=== PATIENT | male | born 1985 ===

== ENCOUNTER 2019-01-13 04:56 | Inpatient (IN) | payer OTHER ==
[~2019-01-13] VITALS: Ht 180.3 cm; Wt 109.5 kg
--- NOTE | 2019-01-13 05:07 | ERD ---
ER Documentation Chief Complaint Chief Complaint Overdose HPI 33-year-old male brought in by ambulance after suicide attempt via overdose. Patient states that he took 15 of his gabapentin 600 mg pills in addition to using methamphetamines and heroin. He states this was an attempt to hurt himself. He states that he was recently in rehab for 70 days and was off of drugs. He got out a few days ago. He met someone today who was told him several drugs. He initially injected methamphetamines, which made him start hallucinating and being very paranoid. He then injected heroin and took his gabapentin pills to help himself feel better. He thinks he was trying to hurt himself but he cannot really answer that question at this time. He states he feels very anxious. No other physical complaints. ROS All systems reviewed and are negative except as per history of present illness. Allergies Allergies: Coded Allergies: No Known Allergy (Unverified , 01/13/19) PMhx/Soc Medical and Surgical Hx: pt denies Surgical Hx Hx Psychiatric Problems: Yes (Depression, PTSD, drug use disorder) Hx Miscellaneous Medical Probl: Yes (Hep C, treated for syphilis in the past) Hx Alcohol Use: No Hx Substance Use: Yes Hx Tobacco Use: Yes FmHx Family History: No diabetes Physical Exam Vitals Vital Signs Date Temp Pulse Resp B/P (MAP) Pulse Ox O2 O2 Flow FiO2 Time Delivery Rate 01/13/19 98.7 84 23 113/87 97 05:05 (96) Physical Exam Const: disheveled, nontoxic Head: Atraumatic Eyes: Normal Conjunctiva. Right pupil dilated and not reactive to light, secondary to old trauma per patient. Left pupil midsize, reactive to light. Horizontal bilateral nystagmus noted. ENT: Normal External Ears, Nose and Mouth. Neck: Full range of motion. No meningismus. Resp: Clear to auscultation bilaterally Cardio: Tachycardic with regular rhythm, no murmurs Abd: Soft, non tender, non distended. Normal bowel sounds Skin: No petechiae or rashes Back: No midline or flank tenderness Ext: No cyanosis, or edema Neur: Awake and alert, normal speech. Moving all extremities. Psych: Very anxious, hyperactive, rapid speech. Paranoid, hallucinating. Result Diagram: 01/13/19 0503 01/13/19 0503 Results 24 hrs Laboratory Tests Test 01/13/19 05:03 01/13/19 05:33 White Blood Count 12.3 10^3/ul Red Blood Count 4.97 10^6/ul Hemoglobin 15.2 g/dl Hematocrit 43.9 % Mean Corpuscular Volume 88.3 fl Mean Corpuscular Hemoglobin 30.6 pg Mean Corpuscular Hemoglobin Concent 34.6 g/dl Red Cell Distribution Width 12.9 % Platelet Count 216 10^3/UL Mean Platelet Volume 9.7 fl Immature Granulocytes % 0.200 % Neutrophils % 55.8 % Lymphocytes % 28.5 % Monocytes % 13.9 % Eosinophils % 1.1 % Basophils % 0.5 % Nucleated Red Blood Cells % 0.0 /100WBC Immature Granulocytes # 0.030 10^3/ul Neutrophils # 6.9 10^3/ul Lymphocytes # 3.5 10^3/ul Monocytes # 1.7 10^3/ul Eosinophils # 0.1 10^3/ul Basophils # 0.1 10^3/ul Nucleated Red Blood Cells # 0.0 10^3/ul Urine Color CIELO Urine Clarity CLEAR Urine pH 6.0 Urine Specific [place] 1.030 Urine Ketones NEGATIVE mg/dL Urine Nitrite NEGATIVE mg/dL Urine Bilirubin NEGATIVE mg/dL Urine Urobilinogen 2+ mg/dL Urine Leukocyte Esterase NEGATIVE Shabbir/ul Urine Microscopic RBC 1 /HPF Urine Microscopic WBC 1 /HPF Urine Bacteria FEW /HPF Urine Hemoglobin NEGATIVE mg/dL Urine Glucose NEGATIVE mg/dL Urine Total Protein 1+ mg/dl Sodium Level 138 mmol/L Potassium Level 3.6 mmol/L Chloride Level 101 mmol/L Carbon Dioxide Level 28 mmol/L Anion Gap 9 Blood Urea Nitrogen 25 mg/dl Creatinine 1.13 mg/dl Est Glomerular Filtrat Rate mL/min > 60 mL/min Glucose Level 107 mg/dl Calcium Level 8.2 mg/dl Total Bilirubin 1.2 mg/dl Direct Bilirubin 0.00 mg/dl Indirect Bilirubin 1.2 mg/dl Aspartate Amino Transf (AST/SGOT) 94 IU/L Alanine Aminotransferase (ALT/SGPT) 67 IU/L Alkaline Phosphatase 94 IU/L Total Protein 7.1 g/dl Albumin 3.8 g/dl Globulin 3.30 g/dl Albumin/Globulin Ratio 1.15 Salicylates Level < 1.0 mg/dl Acetaminophen Level < 10.0 ug/ml Ethyl Alcohol Level < 10.0 mg/dl POC Venous Lactate 0.6 mmol/L Current Medications Medications Dose Sig/Stacy Start Time Status Last (Trade) Ordered Route PRN Stop Time Admin Dose Reason Admin Sodium 1,000 ml @ Q1H STAT 01/13/19 01/13/19 Chloride 1,000 mls/hr IV 05:23 05:39 01/13/19 06:22 Lorazepam 2 mg ONCE STAT 01/13/19 DC 01/13/19 (Ativan) IV 05:23 05:39 01/13/19 05:25 Procedures/MDM EMERGENT LABS AND DIAGNOSTIC STUDIES: Lab Results above were reviewed and interpreted by me. CBC: no anemia or evidence of infection CMP: No evidence of clinically significant electrolyte abnormality, acidosis, renal failure, hypoglycemia, liver disease, or biliary obstruction CK: Pending Troponin pending Lactate within normal limits without evidence of sepsis or tissue hypoperfusion UDS: Pending EtOH, salicylate, and acetaminophen levels within normal limits 12-lead EKG was interpreted by Giselle Bingham MD: Normal Sinus Rhythm with ventricular rate of [] beats per minute Normal axis Normal intervals No acute ST or T wave changes suggestive of acute ischemia or STEMI. Initial Nursing notes reviewed. Previous Medical Records requested via the Electronic Health Record. EMERGENCY DEPARTMENT COURSE / MEDICAL DECISION MAKING: Patient is presenting after drug overdose with paranoia and anxiety. He states that this was an attempt to hurt himself. Vitals were notable for tachycardia. Patient was treated with 2 mg IV Ativan. Poison control was contacted and they recommended multiple studies which were ordered. They recommended observation in the ED for at least 6 hours prior to discharge. Patient is agreeable with treatment plan. He has been placed on site monitor. There are no signs of tissue hypoperfusion at this time. He is awake and alert with no focal neurologic deficits. Patient will be signed out to the oncoming ED physician pending medical clearance. Once patient is medically cleared, he may be evaluated by psychiatry if deemed appropriate. Departure Diagnosis: Primary Impression: Suicide threat or attempt Additional Impressions: Overdose of drug Encounter type: initial encounter Injury intent: intentional self-harm Qualified Codes: T50.902A - Poisoning by unspecified drugs, medicaments and biological substances, intentional self-harm, initial encounter Polysubstance abuse Condition: Serious SUSANNAH BINGHAM MD Jan 13, 2019 05:07
[2019-01-13] MEDS ORDERED: LORAZEPAM 2 MG INJ IV STA (05:23)
[2019-01-13] MEDS ORDERED: SOD CHLORIDE 0.9% 1,000 ML IV STA ×2 (05:23→06:15)
--- NOTE | 2019-01-13 07:00 | PSY ---
Date/Time of Note Date/Time of Note DATE: 01/13/19 TIME: 06:56 Psychiatric Subjective Eval Consent Pt consented to telemedicine: Yes Subjective Evaluation Patient location: emergency Chief Complaint: [id number],took 15 gabapentin pills,used crystal meth & heroine,L back pain Hospitalization: Suicidal Attempt(s) Medical history Problems Medical Problems: (1) Overdose of drug Status: Acute (2) Polysubstance abuse Status: Acute (3) Suicide threat or attempt Status: Acute Allergies: Coded Allergies: No Known Allergy (Unverified , 01/13/19) Social History Marital status: single DPA/Conservatorship: No Psychiatric Objective Eval Mental Status Examination: Laboratory Results Laboratory Tests Test 01/13/19 05:03 01/13/19 05:27 01/13/19 05:33 White Blood Count 12.3 10^3/ul Red Blood Count 4.97 10^6/ul Hemoglobin 15.2 g/dl Hematocrit 43.9 % Mean Corpuscular Volume 88.3 fl Mean Corpuscular Hemoglobin 30.6 pg Mean Corpuscular 34.6 g/dl Hemoglobin Concent Red Cell Distribution Width 12.9 % Platelet Count 216 10^3/UL Mean Platelet Volume 9.7 fl Immature Granulocytes % 0.200 % Neutrophils % 55.8 % Lymphocytes % 28.5 % Monocytes % 13.9 % Eosinophils % 1.1 % Basophils % 0.5 % Nucleated Red Blood Cells % 0.0 /100WBC Immature Granulocytes # 0.030 10^3/ul Neutrophils # 6.9 10^3/ul Lymphocytes # 3.5 10^3/ul Monocytes # 1.7 10^3/ul Eosinophils # 0.1 10^3/ul Basophils # 0.1 10^3/ul Nucleated Red Blood Cells # 0.0 10^3/ul Urine Color CIELO Urine Clarity CLEAR Urine pH 6.0 Urine Specific [place] 1.030 Urine Ketones NEGATIVE mg/dL Urine Nitrite NEGATIVE mg/dL Urine Bilirubin NEGATIVE mg/dL Urine Urobilinogen 2+ mg/dL Urine Leukocyte Esterase NEGATIVE Shabbir/ul Urine Microscopic RBC 1 /HPF Urine Microscopic WBC 1 /HPF Urine Bacteria FEW /HPF Urine Hemoglobin NEGATIVE mg/dL Urine Glucose NEGATIVE mg/dL Urine Total Protein 1+ mg/dl Sodium Level 138 mmol/L Potassium Level 3.6 mmol/L Chloride Level 101 mmol/L Carbon Dioxide Level 28 mmol/L Anion Gap 9 Blood Urea Nitrogen 25 mg/dl Creatinine 1.13 mg/dl Est Glomerular Filtrat > 60 mL/min Rate mL/min Glucose Level 107 mg/dl Calcium Level 8.2 mg/dl Total Bilirubin 1.2 mg/dl Direct Bilirubin 0.00 mg/dl Indirect Bilirubin 1.2 mg/dl Aspartate Amino 94 IU/L Transf (AST/SGOT) Alanine 67 IU/L Aminotransferase (ALT/SGPT) Alkaline Phosphatase 94 IU/L Total Protein 7.1 g/dl Albumin 3.8 g/dl Globulin 3.30 g/dl Albumin/Globulin Ratio 1.15 Salicylates Level < 1.0 mg/dl Urine Opiates Screen POSITIVE Acetaminophen Level < 10.0 ug/ml Urine Barbiturates NEGATIVE Urine Amphetamines Screen POSITIVE Urine Benzodiazepines Screen NEGATIVE Urine Cocaine Screen NEGATIVE Urine Cannabinoids NEGATIVE Ethyl Alcohol Level < 10.0 mg/dl Creatine Kinase 1585 IU/L Creatine Kinase Index 1.0 Creatinine Kinase MB (Mass) 15.40 ng/ml Troponin I < 0.012 ng/ml POC Venous Lactate 0.6 mmol/L Assessment and Plan Recommendation/Plan Discharge Disposition: Psychiatric inpatient Legal Status: Place involuntary hold Assessment Additional comments: IDENTIFYING INFORMATION: 33 year old Male patient who is currently located at the hospital and for whom psychiatric consultation was requested. SOURCES OF INFORMATION: The patient who appears to be somewhat reliable and the medical records; the nursing staff. CHIEF COMPLAINT: "hmmm". HISTORY OF PRESENT ILLNESS: The patient was interviewed via telemedicine in the presence of and under the supervision of nursing staff of the hospital. The consent to conducting this interview via telemedicine was obtained by the nursing staff at the hospital. Dr. Kaiser reports that the patient presented with SI, meth, opiate use and an OD of various medications. According to the emergency room physicians note, the patient presented with a suicide attempt. Is on a 5150 hold for DTS. The patient was not able to cooperate and answer questions in a comprehensible manner. PAST MEDICAL HISTORY: Unable to assess, because the patient was not able to participate in the interview. CURRENT MEDICATIONS: Unable to assess, because the patient was not able to participate in the interview.. ALLERGIES TO MEDICATIONS: no known drug allergies according to the chart. LABORATORY TESTS: CBC with WBCs 12.3, CMP with calcium 8.2, indirect bili 1.2, AST 94, CK 1585, UDS + amph, opiates, alcohol level -. SOCIAL HISTORY: Unable to assess, because the patient was not able to participate in the interview. REVIEW OF SYSTEMS: unable to assess due to the patient not being able to cooperate. MENTAL STATUS EXAMINATION: General Appearance and Behavior: somnolent, uncooperative with the interview, falls asleep during the interview, makes poor eye contact, poorly groomed, no abnormal movements noted. Speech: slow rate, regular rhythm, increased latency, normal volume, decreased amount. Flow of thought: illogical, tangential, Content of thought: positive for suicidal ideation based on the chart as well as overdose, Unable to assess further as the patient is not able to cooperate with the interview due to sedation. Mood: Unable to assess as the patient is not able to cooperate with the interview due to sedation. Affect: Unable to assess as the patient is not able to cooperate with the interview due to sedation. Attention: decreased based on the interview. Insight: Unable to assess as the patient is not able to cooperate with the interview due to sedation. Judgment: poor. Memory: Unable to assess as the patient is not able to cooperate with the interview due to sedation. Sensorium: somnolent, wakes up to voice, then falls back asleep within a few seconds. ASSESSMENT: The patient's presentation and history are consistent with the diagnosis of unspecified psychotic disorder, stimulant use disorder, opiate use disorder. The patient presents with an exacerbation of psychosis in the context of psychosocial stressors and substance use. PLAN: - Medication management: Would start haloperidol 5 mg IM PRN severe agitation q4 hours. Would start diphenhydramine 50 mg IM PRN severe agitation q4 hours. Would start lorazepam 2 mg IM PRN severe agitation q4 hours Will defer to the inpatient psychiatry team for other medication changes. - Labs: No other laboratory tests are needed at this time. - Psychotherapy: Provided supportive psychotherapy and psychoeducation. - Disposition: Would recommend involuntary admission to the inpatient psychiatric unit given the severity of the patient's psychiatric condition and the fact that the patient is an imminent danger to self and/or others so long as the patient has been cleared medically for admission to psychiatry. Inpatient psychiatric admission is at this time the least restrictive environment where the patient can receive the psychiatric care that is needed. Would place on suicide precautions. The patient fulfills criteria for being placed on an involuntary hold for being a danger to self due to a psychiatric disorder. Discussed about the above plan with Dr. Kaiser. CHARLES CORNEJO MD Jan 13, 2019 07:00
[2019-01-13] MEDS ORDERED: LORAZEPAM 1 MG TAB PO ONE (10:00)
--- NOTE | 2019-01-13 12:16 | HP ---
Date/Time of Note Date/Time of Note DATE: 01/13/19 TIME: 12:16 Assessment/Plan VTE Prophylaxis Pharmacological prophylaxis: LMWH Lines/Catheters IV [facility]ter [facility]from [facility]): Peripheral IV Assessment/Plan Hospital Course This a 33-year-old male with a past medical history of depression and substance abuse was brought in to emergency room after attempted suicide with multiple medications, was found to underlying rhabdomyolysis and will be admitted to in patient setting. 1. Rhabdomyolysis. Continue IV hydration. Monitor renal function closely. 2. Suicidal ideation with attempted suicide. Continue one-to-one observation. Status post evaluation by psychiatry who recommended involuntary psychiatric hospitalization. PRN anxiolytics. PRN Haldol for agitation. 3. Polysubstance abuse. Status post report poison control. Continue IV hydration. Continue supportive care. 4. Obesity. BMI more than 35 kg/m. Obtain a fasting lipid panel and hemoglobin A1c. Plan: The patient will be admitted to inpatient medical/surgical floor. The pa tient will be started on a regular diet. The patient will be started on DVT prophylaxis. The patient will remain a full code. Activities will be as tolerated. The rest of the patient's management will be based on the clinical course and the results of diagnostic studies. Based on the patient's clinical presentation, he most probably requires at least 1 midnight's stay for further management and evaluation of his clinical presentation. The patient was seen in collaboration with Dr. Thorpe. Result Diagram: 01/13/19 0503 01/13/19 0503 Results 24hrs Laboratory Tests Test 01/13/19 05:03 01/13/19 05:27 01/13/19 05:33 01/13/19 10:41 White Blood Count 12.3 H Red Blood Count 4.97 Hemoglobin 15.2 Hematocrit 43.9 Mean Corpuscular 88.3 Volume Mean Corpuscular 30.6 Hemoglobin Mean Corpuscular 34.6 Hemoglobin Concent Red Cell 12.9 Distribution Width Platelet Count 216 Mean Platelet Volume 9.7 Immature 0.200 Granulocytes % Neutrophils % 55.8 Lymphocytes % 28.5 Monocytes % 13.9 H Eosinophils % 1.1 Basophils % 0.5 Nucleated Red Blood 0.0 Cells % Immature 0.030 Granulocytes # Neutrophils # 6.9 Lymphocytes # 3.5 H Monocytes # 1.7 H Eosinophils # 0.1 Basophils # 0.1 Nucleated Red Blood 0.0 Cells # Urine Color CIELO Urine Clarity CLEAR Urine pH 6.0 Urine Specific 1.030 [place] Urine Ketones NEGATIVE Urine Nitrite NEGATIVE Urine Bilirubin NEGATIVE Urine Urobilinogen 2+ H Urine Leukocyte NEGATIVE Esterase Urine Microscopic 1 RBC Urine Microscopic 1 WBC Urine Bacteria FEW A Urine Hemoglobin NEGATIVE Urine Glucose NEGATIVE Urine Total Protein 1+ H Sodium Level 138 Potassium Level 3.6 Chloride Level 101 Carbon Dioxide Level 28 Anion Gap 9 Blood Urea Nitrogen 25 H Creatinine 1.13 Est Glomerular > 60 Filtrat Rate mL/min Glucose Level 107 Calcium Level 8.2 L Total Bilirubin 1.2 Direct Bilirubin 0.00 Indirect Bilirubin 1.2 H Aspartate Amino 94 H Transf (AST/SGOT) Alanine 67 Aminotransferase (AL T/SGPT) Alkaline Phosphatase 94 Total Protein 7.1 Albumin 3.8 Globulin 3.30 H Albumin/Globulin 1.15 Ratio Salicylates Level < 1.0 L Urine Opiates Screen POSITIVE Acetaminophen Level < 10.0 L Urine Barbiturates NEGATIVE Urine Amphetamines POSITIVE Screen Urine NEGATIVE Benzodiazepines Screen Urine Cocaine Screen NEGATIVE Urine Cannabinoids NEGATIVE Ethyl Alcohol Level < 10.0 H Creatine Kinase 1585 H 1297 H Creatine Kinase 1.0 Index Creatinine Kinase MB 15.40 H (Mass) Troponin I < 0.012 POC Venous Lactate 0.6 HPI/ROS Admit Date/Time Admit Date/Time Hx of Present Illness This is a 33-year-old male with past medical history of depression and substance abuse who was brought in by paramedics after the patient attempted suicide by overdosing on multiple medications. The patient took 15 gabapentin pills in addition to using methamphetamines and heroin. The patient was apparently in a rehab for 70 days and was off drugs. However, he had a relapse when he started using multiple drugs s the patient was feeling very anxious. At the time of initial interview, the patient was very somnolent and was unable to give me any significant history. In the emergency room, the patient was noticed to have underlying rhabdomyolysis. The patient's urine toxicology was positive for opioids and amphetamines. He had elevated creatinine kinase. The patient was treated with IV lorazepam and a IV hydration in the emergency room. ROS Subjective hx not possible: pt critical status PMH/Family/Social Past Medical History 1. Substance abuse. 2. Depression. Coded Allergies: No Known Allergy (Unverified , 01/13/19) Past Surgical History Past Surgical Hx: no surgical history Social History Details unknown. Smoking Status: Current every day smoker Drug Use: other (Meth and cocaine) Exam/Review of Systems Vital Signs Vitals Vital Signs Date Temp Pulse Resp B/P (MAP) Pulse Ox O2 O2 Flow FiO2 Time Delivery Rate 01/13/19 98.3 84 22 115/62 96 Room Air 10:17 (79) Intake and Output 01/12/19 01/12/19 01/13/19 1515:00 23:00 07:00 IntakeIntake Total 1000 ml BalanceBalance 1000 ml Exam Exam General: Obese, 33 year-old male lying in bed in no apparent distress. HEENT: Normocephalic, atraumatic. Eyes: Anicteric sclerae, conjunctivae clear. ENT: Nasal septum midline, oral mucosa is dry. Neck supple, no JVD noticed. Respiratory: Bilaterally diminished breath sounds. No use of accessory muscles of respiration. No adventitious breath sounds. Cardiovascular: S1, S2 heard. Regular rate and rhythm. Abdomen: Soft, nontender, and nondistended. Bowel sounds positive in all 4 quadrants. Genitourinary: Deferred. Extremities: No cyanosis, no clubbing, no edema. Peripheral pulses palpable. Neurology: Somnolent. Wakes up to call. Oriented to self. Slurred speech. Restless when awake. Skin: Multiple tattoos all over the skin. SADE ROBISON NP Jan 13, 2019 12:16
[2019-01-13] MEDS ORDERED: ONDANSETRON 4 MG INJ IV PRN ×2 (12:30→14:00)
[2019-01-13] MEDS ORDERED: HYDROCODONE/APAP (5/325) TAB PO PRN (12:30)
[2019-01-13] MEDS ORDERED: NACL 0.9% 3 ML SYG IV SCH (12:30)
[2019-01-13] MEDS ORDERED: LORAZEPAM 2 MG INJ IV PRN (12:30)
[2019-01-13] MEDS ORDERED: GABA-526 PO (12:42)
[2019-01-13] MEDS ORDERED: ESCI10TA48 PO (12:43)
[2019-01-13] MEDS ORDERED: ESCI5TAB10 PO (12:43)
[2019-01-13] MEDS ORDERED: IBUP-1544 PO (12:45)
[2019-01-13] MEDS ORDERED: HALOPERIDOL 5 MG INJ IM PRN (13:00)
[2019-01-13] MEDS ORDERED: ACETAMINOPHEN 325 MG TAB PO PRN (14:00)
[2019-01-13] MEDS: SOD CHLORIDE 0.9% 1,000 ML IV SCH ×3 (14:44→21:27)
[2019-01-13 16:56] VITALS: Ht 180.3 cm; Wt 109.5 kg
[2019-01-13 17:00] VITALS: BP 104/56; PULSE 66; RESP 18
[2019-01-13 19:37] VITALS: BP 107/58; PULSE 71; RESP 18
[2019-01-14 01:06] VITALS: BP 115/68; PULSE 88; RESP 18
[2019-01-14] MEDS: SOD CHLORIDE 0.9% 1,000 ML IV SCH ×4 (04:21→21:54)
[2019-01-14 07:26] VITALS: BP 106/63; PULSE 58; RESP 19
[2019-01-14] MEDS: ENOXAPARIN 40 MG/0.4 ML SYG SC SCH (09:17)
[2019-01-14 14:33] VITALS: BP 114/56; PULSE 69; RESP 19
--- NOTE | 2019-01-14 16:09 | PN ---
Date/Time of Note Date/Time of Note DATE: 01/14/19 TIME: 16:06 Assessment/Plan VTE Prophylaxis Risk score (from Nsg)>0 risk: 1 SCD applied (from Ns): No SCD contraindicated: other Pharmacological prophylaxis: LMWH Lines/Catheters IV Catheter Type (from Nrs): Peripheral IV Urinary Cath still in place: No Assessment/Plan Hospital Course SUBJECTIVE: The patient is awake and alert. Complains of some anxiety. Complains of soreness in the plantar surfaces of the feet bilaterally. OBJECTIVE: Physical Exam General: Obese, 33 year-old male lying in bed in no apparent distress. HEENT: Normocephalic, atraumatic. Eyes: Anicteric sclerae, conjunctivae clear. ENT: Nasal septum midline, oral mucosa is dry. Neck supple, no JVD noticed. Respiratory: Bilaterally diminished breath sounds. No use of accessory muscles of respiration. No adventitious breath sounds. Cardiovascular: S1, S2 heard. Regular rate and rhythm. Abdomen: Soft, nontender, and nondistended. Bowel sounds positive in all 4 quadrants. Genitourinary: Deferred. Extremities: No cyanosis, no clubbing, no edema. Peripheral pulses palpable. Neurology: The patient is awake alert and oriented. Skin: Multiple tattoos all over the skin. Multiple blisters on bilateral foot plantar surfaces. Labs & Vitals per chart ASSESSMENT & PLAN This a 33-year-old male with a past medical history of depression and substance abuse was brought in to emergency room after attempted suicide with multiple medications, was found to underlying rhabdomyolysis and was admitted to in atient setting. 1. Rhabdomyolysis. Continue IV hydration. Monitor renal function closely. 2. Suicidal ideation with attempted suicide. Continue one-to-one observation. Status post evaluation by psychiatry who recommended involuntary psychiatric hospitalization. PRN anxiolytics. PRN Haldol for agitation. Start SSRI. 3. Polysubstance abuse. Status post report poison control. Continue IV hydration. Continue supportive care. 4. Obesity. BMI more than 35 kg/m. Fasting lipid panel and hemoglobin A1c within normal limits. 5. Fluids, electrolytes, and nutrition. Regular diet. Continue IV fluids. 6. DVT prophylaxis Subcutaneous Lovenox. 7. Plan. Continue IV hydration. Once his CK levels are within normal limits, the patient will be medically cleared to be transferred to an inpatient psych facility. The patient was seen in collaboration with Dr. Thorpe. Result Diagram: 01/14/19 0554 01/14/19 0554 Results 24hrs Laboratory Tests Test 01/14/19 05:54 White Blood Count 6.0 # Red Blood Count 4.83 Hemoglobin 14.8 Hematocrit 44.6 Mean Corpuscular Volume 92.3 Mean Corpuscular Hemoglobin 30.6 Mean Corpuscular Hemoglobin Concent 33.2 Red Cell Distribution Width 13.0 Platelet Count 191 Mean Platelet Volume 10.1 Immature Granulocytes % 0.200 Neutrophils % 38.6 L Lymphocytes % 45.1 Monocytes % 11.1 H Eosinophils % 3.8 Basophils % 1.2 Nucleated Red Blood Cells % 0.0 Immature Granulocytes # 0.010 Neutrophils # 2.3 Lymphocytes # 2.7 Monocytes # 0.7 Eosinophils # 0.2 Basophils # 0.1 Nucleated Red Blood Cells # 0.0 Sodium Level 141 Potassium Level 4.1 Chloride Level 109 Carbon Dioxide Level 27 Anion Gap 5 Blood Urea Nitrogen 18 Creatinine 0.84 Est Glomerular Filtrat Rate mL/min > 60 Glucose Level 102 Hemoglobin A1c 5.0 Calcium Level 7.7 L Phosphorus Level 3.6 Magnesium Level 2.2 Total Bilirubin 0.4 Direct Bilirubin 0.00 Indirect Bilirubin 0.4 Aspartate Amino Transf (AST/SGOT) 54 H Alanine Aminotransferase (ALT/SGPT) 49 Alkaline Phosphatase 87 Creatine Kinase 577 #H Creatine Kinase Index 0.9 Creatinine Kinase MB (Mass) 5.19 H Troponin I < 0.012 Total Protein 5.9 #L Albumin 3.0 L Globulin 2.90 Albumin/Globulin Ratio 1.03 Triglycerides Level 52 Cholesterol Level 91 L LDL Cholesterol, Calculated 43 HDL Cholesterol 38 Cholesterol/HDL Ratio 2.3 Exam/Review of Systems Exam Vitals Vital Signs Date Temp Pulse Resp B/P (MAP) Pulse Ox O2 O2 Flow FiO2 Time Delivery Rate 01/14/19 97.9 69 19 114/56 95 Room Air 14:33 (75) Intake and Output 01/13/19 01/13/19 01/14/19 1515:00 23:00 07:00 IntakeIntake Total 1000 ml 2680 ml 2080 ml BalanceBalance 1000 ml 2680 ml 2080 ml Results Results 24hrs Laboratory Tests Test 01/14/19 05:54 White Blood Count 6.0 # Red Blood Count 4.83 Hemoglobin 14.8 Hematocrit 44.6 Mean Corpuscular Volume 92.3 Mean Corpuscular Hemoglobin 30.6 Mean Corpuscular Hemoglobin Concent 33.2 Red Cell Distribution Width 13.0 Platelet Count 191 Mean Platelet Volume 10.1 Immature Granulocytes % 0.200 Neutrophils % 38.6 L Lymphocytes % 45.1 Monocytes % 11.1 H Eosinophils % 3.8 Basophils % 1.2 Nucleated Red Blood Cells % 0.0 Immature Granulocytes # 0.010 Neutrophils # 2.3 Lymphocytes # 2.7 Monocytes # 0.7 Eosinophils # 0.2 Basophils # 0.1 Nucleated Red Blood Cells # 0.0 Sodium Level 141 Potassium Level 4.1 Chloride Level 109 Carbon Dioxide Level 27 Anion Gap 5 Blood Urea Nitrogen 18 Creatinine 0.84 Est Glomerular Filtrat Rate mL/min > 60 Glucose Level 102 Hemoglobin A1c 5.0 Calcium Level 7.7 L Phosphorus Level 3.6 Magnesium Level 2.2 Total Bilirubin 0.4 Direct Bilirubin 0.00 Indirect Bilirubin 0.4 Aspartate Amino Transf (AST/SGOT) 54 H Alanine Aminotransferase (ALT/SGPT) 49 Alkaline Phosphatase 87 Creatine Kinase 577 #H Creatine Kinase Index 0.9 Creatinine Kinase MB (Mass) 5.19 H Troponin I < 0.012 Total Protein 5.9 #L Albumin 3.0 L Globulin 2.90 Albumin/Globulin Ratio 1.03 Triglycerides Level 52 Cholesterol Level 91 L LDL Cholesterol, Calculated 43 HDL Cholesterol 38 Cholesterol/HDL Ratio 2.3 Medications Medication Current Medications Sodium Chloride 1,000 ml @ 125 mls/hr Q8H IV Last administered on 01/14/19at 13:52; Admin Dose 125 MLS/HR; Start 01/13/19 at 12:30 IV Flush (NS 3 ml) 3 ml PER PROTOCOL IV ; Start 01/13/19 at 12:30 Ondansetron HCl (Zofran Inj) 4 mg Q6H PRN IV NAUSEA/VOMITING; Start 01/13/19 at 12:30 Acetaminophen/ Hydrocodone Bitart ([place] (5/325)) 1 tab Q6H PRN PO .MOD PAIN 4- 6 Last administered on 01/14/19at 00:14; Admin Dose 1 TAB; Start 01/13/19 at 12:30 Lorazepam (Ativan) 1 mg Q6H PRN IV Anxiety; Start 01/13/19 at 12:30 Haloperidol (Haldol) 5 mg Q4H PRN IM Agitation; Start 01/13/19 at 13:00 Enoxaparin Sodium (Lovenox) 40 mg DAILY SC Last administered on 01/14/19at 09:17; Admin Dose 40 MG; Start 01/14/19 at 09:00 SADE ROBISON NP Jan 14, 2019 16:09
[2019-01-14 19:17] VITALS: BP 122/62; PULSE 75; RESP 17
[2019-01-15 01:52] VITALS: BP 121/60; PULSE 80; RESP 18
[2019-01-15] MEDS: SOD CHLORIDE 0.9% 1,000 ML IV SCH ×2 (05:35→13:31)
[2019-01-15 07:52] VITALS: BP 146/69; PULSE 78; RESP 18
[2019-01-15] MEDS: ENOXAPARIN 40 MG/0.4 ML SYG SC SCH (08:36)
[2019-01-15] MEDS ORDERED: ESCITALOPRAM 10 MG TAB PO SCH (09:00)
--- NOTE | 2019-01-15 12:51 | CONS ---
Date/Time of Note Date/Time of Note DATE: 01/15/19 TIME: 12:48 Consult Date/Type/Reason Admit Date Jan 13, 2019 at 13:47 Type of Consult Psych Subjective Patient was interviewed today, he reports feeling depressed, reports feeling of hopelessness, but he tries to minimize his symptoms. Patient overdose on 16 tablets of gabapentin and increase to meds to kill himself, however now he is trying to evade the question. Explained to patient that what he did is a cry for help and he will require inpatient hospitalization and he agreed Objective Patient Appearance: Appropriate dress Voice Loudness: Mildly Soft/Quiet Mood and Affect Description: Anxious Mood or Affect: Cooperative Speech Pattern: Clear Thought Process: Intact Hallucination Type: None Delusion Description: Not Present Assessment/Plan Recommendations Continue med stabilization with Lexapro, patient needs to be evaluated by crisis team for possibly 5150 hold. LIO CARRILLO NP Jan 15, 2019 12:51
[2019-01-15 14:00] VITALS: BP 112/70; PULSE 84; RESP 18
--- NOTE | 2019-01-15 14:29 | PN ---
Date/Time of Note Date/Time of Note DATE: 01/15/19 TIME: 14:28 Assessment/Plan VTE Prophylaxis Risk score (from Nsg)>0 risk: 1 SCD applied (from Ns): No SCD contraindicated: other Pharmacological prophylaxis: LMWH Lines/Catheters IV Catheter Type (from Nrs): Peripheral IV Urinary Cath still in place: No Assessment/Plan Hospital Course SUBJECTIVE: The patient is awake and alert. Complains of some anxiety. Complains of soreness in the plantar surfaces of the feet bilaterally. OBJECTIVE: Physical Exam General: Obese, 33 year-old male lying in bed in no apparent distress. HEENT: Normocephalic, atraumatic. Eyes: Anicteric sclerae, conjunctivae clear. ENT: Nasal septum midline, oral mucosa is dry. Neck supple, no JVD noticed. Respiratory: Bilaterally diminished breath sounds. No use of accessory muscles of respiration. No adventitious breath sounds. Cardiovascular: S1, S2 heard. Regular rate and rhythm. Abdomen: Soft, nontender, and nondistended. Bowel sounds positive in all 4 quadrants. Genitourinary: Deferred. Extremities: No cyanosis, no clubbing, no edema. Peripheral pulses palpable. Neurology: The patient is awake alert and oriented. Skin: Multiple tattoos all over the skin. Multiple blisters on bilateral foot plantar surfaces. Labs & Vitals per chart ASSESSMENT & PLAN This a 33-year-old male with a past medical history of depression and substance abuse was brought in to emergency room after attempted suicide with multiple medications, was found to underlying rhabdomyolysis and was admitted to in atient setting. 1. Rhabdomyolysis. Improved with IV hydration. Monitor renal function closely. 2. Suicidal ideation with attempted suicide. Continue one-to-one observation. Status post evaluation by psychiatry who recommended involuntary psychiatric hospitalization. PRN anxiolytics. PRN Haldol for agitation. Continue SSRI. 3. Polysubstance abuse. Status post report poison control. Continue IV hydration. Continue supportive care. 4. Obesity. BMI more than 35 kg/m. Fasting lipid panel and hemoglobin A1c within normal limits. 5. Fluids, electrolytes, and nutrition. Regular diet. Continue IV fluids. 6. DVT prophylaxis Subcutaneous Lovenox. 7. Plan. The patient's rhabdomyolysis is almost resolved. The patient is medically cleared to be transferred to a psych facility. The patient was seen in collaboration with Dr. Thorpe. Result Diagram: 01/14/19 0554 01/15/19 0436 Results 24hrs Laboratory Tests Test 01/14/19 16:28 01/15/19 04:36 Creatine Kinase 406 #H 247 #H Creatine Kinase Index 0.9 0.9 Creatinine Kinase MB (Mass) 3.56 H 2.15 Troponin I < 0.012 < 0.012 Sodium Level 142 Potassium Level 4.0 Chloride Level 111 H Carbon Dioxide Level 26 Anion Gap 5 Blood Urea Nitrogen 14 Creatinine 0.79 Est Glomerular Filtrat Rate mL/min > 60 Glucose Level 99 Calcium Level 8.0 L Phosphorus Level 3.5 Magnesium Level 2.2 Total Bilirubin 0.2 Direct Bilirubin 0.00 Indirect Bilirubin 0.2 Aspartate Amino Transf (AST/SGOT) 38 Alanine Aminotransferase (ALT/SGPT) 48 Alkaline Phosphatase 110 Total Protein 5.9 L Albumin 2.9 L Globulin 3.00 Albumin/Globulin Ratio 0.96 Exam/Review of Systems Exam Vitals Vital Signs Date Temp Pulse Resp B/P (MAP) Pulse Ox O2 O2 Flow FiO2 Time Delivery Rate 01/15/19 97.8 78 18 146/69 97 Room Air 07:52 (94) Intake and Output 01/14/19 01/14/19 01/15/19 1515:00 23:00 07:00 IntakeIntake Total 2760 ml 2090 ml 1000 ml BalanceBalance 2760 ml 2090 ml 1000 ml Results Results 24hrs Laboratory Tests Test 01/14/19 16:28 01/15/19 04:36 Creatine Kinase 406 #H 247 #H Creatine Kinase Index 0.9 0.9 Creatinine Kinase MB (Mass) 3.56 H 2.15 Troponin I < 0.012 < 0.012 Sodium Level 142 Potassium Level 4.0 Chloride Level 111 H Carbon Dioxide Level 26 Anion Gap 5 Blood Urea Nitrogen 14 Creatinine 0.79 Est Glomerular Filtrat Rate mL/min > 60 Glucose Level 99 Calcium Level 8.0 L Phosphorus Level 3.5 Magnesium Level 2.2 Total Bilirubin 0.2 Direct Bilirubin 0.00 Indirect Bilirubin 0.2 Aspartate Amino Transf (AST/SGOT) 38 Alanine Aminotransferase (ALT/SGPT) 48 Alkaline Phosphatase 110 Total Protein 5.9 L Albumin 2.9 L Globulin 3.00 Albumin/Globulin Ratio 0.96 Medications Medication Current Medications Sodium Chloride 1,000 ml @ 125 mls/hr Q8H IV Last administered on 01/15/19at 13:31; Admin Dose 125 MLS/HR; Start 01/13/19 at 12:30 IV Flush (NS 3 ml) 3 ml PER PROTOCOL IV ; Start 01/13/19 at 12:30 Ondansetron HCl (Zofran Inj) 4 mg Q6H PRN IV NAUSEA/VOMITING; Start 01/13/19 at 12:30 Acetaminophen/ Hydrocodone Bitart ([place] (5/325)) 1 tab Q6H PRN PO .MOD PAIN 4- 6 Last administered on 01/14/19at 00:14; Admin Dose 1 TAB; Start 01/13/19 at 12:30 Lorazepam (Ativan) 1 mg Q6H PRN IV Anxiety; Start 01/13/19 at 12:30 Haloperidol (Haldol) 5 mg Q4H PRN IM Agitation; Start 01/13/19 at 13:00 Enoxaparin Sodium (Lovenox) 40 mg DAILY SC Last administered on 01/15/19at 08:36; Admin Dose 40 MG; Start 01/14/19 at 09:00 Escitalopram Oxalate (Lexapro) 20 mg DAILY PO Last administered on 01/15/19at 08:35; Admin Dose 20 MG; Start 01/15/19 at 09:00 SADE ROBISON NP Jan 15, 2019 14:29
[2019-01-15] MEDS ORDERED: ESCI10TA48 PO (14:57)
--- NOTE | 2019-01-15 16:32 | DS ---
Date/Time of Note Date/Time of Note DATE: 01/15/19 TIME: 16:30 Discharge Summary Admission/Discharge Info Admit Date/Time Jan 13, 2019 at 13:47 Discharge Date/Time Discharge Diagnosis 1. Rhabdomyolysis. 2. Suicidal ideation with attempted suicide. 3. Polysubstance abuse. 4. Obesity. BMI more than 35 kg/m. Patient Condition: Stable Consults 1. Kera Julien MD, Psychiatry. 2. Ann Marie Ervin NP, Psychiatry. Hx of Present Illness This is a 33-year-old male with past medical history of depression and substance abuse who was brought in by paramedics after the patient attempted suicide by overdosing on multiple medications. The patient took 15 gabapentin pills in addition to using methamphetamines and heroin. The patient was apparently in a rehab for 70 days and was off drugs. However, he had a relapse when he started using multiple drugs s the patient was feeling very anxious. At the time of initial interview, the patient was very somnolent and was unable to give me any significant history. In the emergency room, the patient was noticed to have underlying rhabdom yolysis. The patient's urine toxicology was positive for opioids and amphetamines. He had elevated creatinine kinase. The patient was treated with IV lorazepam and a IV hydration in the emergency room. Hospital Course The patient was admitted to inpatient setting. The patient had evidence of underlying rhabdomyolysis. The patient was maintained on IV hydration with improvement in the patient's creatinine kinase. The patient's renal function was monitored closely. The patient's renal function remains stable. The patient was evaluated by psychiatry in the emergency room as well as during inpatient hospitalization and recommended involuntary admission to a psychiatric facility because of suicidal ideation with attempted suicide. The patient was maintained on PRN anxiolytics. The patient was maintained on PRN Haldol for agitation. The patient was resumed on SSRI for his underlying depression. The patient also abuse multiple drugs including methamphetamine and heroin. Poison control was informed by the ER staff and the poison control recommended supportive care. The patient's urine drug screen was positive for amphetamines and opiates. The patient's acetaminophen and salicylate levels were within normal limits. The patient was noted to be obese with a BMI of 33 kilograms per meter squared. The patient's fasting lipid panel and hemoglobin A1c was within normal limits. Patient had a stable hospital course. The patient's rhabdomyolysis has been resolved. The patient is stable for transfer to an inpatient psychiatric facility. At this time I would like to thank all the consultants for seeing the patient an d providing clinical recommendations. The patient was seen in collaboration with Dr. Thorpe. Home Meds Active Scripts Escitalopram Oxalate* (Escitalopram Oxalate*) 10 Mg Tablet, 20 MG PO DAILY, #30 TAB Prov:SADE ROBISON [employer] INSTRUCTOR 01/15/19 Discontinued Reported Medications Ibuprofen* (Ibuprofen*) 800 Mg Tablet, 800 MG PO, TAB UNABLE TO VERIFIED 01/13/19 Escitalopram Oxalate* (Escitalopram Oxalate*) 10 Mg Tablet, 10 MG PO, #30 TAB UNABLE TO VERIFIED 01/13/19 Escitalopram Oxalate* (Escitalopram Oxalate*) 5 Mg Tablet, 5 MG PO, #30 TAB UNABLE TO VERIFIED 01/13/19 Gabapentin* (Gabapentin*) 600 Mg Tablet, 600 MG PO, #60 TAB UNABLE TO VERIFIED 01/13/19 Follow-up Plan The patient being transferred to inpatient psychiatric hospital. Primary Care Provider Not On Staff Doctor Time spent on discharge: > 30 minutes Pending Labs Laboratory Tests Test 01/15/19 04:36 Sodium Level 142 mmol/L (135-144) Potassium Level 4.0 mmol/L (3.5-5.1) Chloride Level 111 mmol/L (97-110) Carbon Dioxide Level 26 mmol/L (21-31) Anion Gap 5 (5-13) Blood Urea Nitrogen 14 mg/dl (7-20) Creatinine 0.79 mg/dl (0.61-1.24) Est Glomerular Filtrat Rate mL/min > 60 mL/min (>60) Glucose Level 99 mg/dl (70-220) Calcium Level 8.0 mg/dl (8.4-10.2) Phosphorus Level 3.5 mg/dl (2.5-4.9) Magnesium Level 2.2 mg/dl (1.7-2.5) Total Bilirubin 0.2 mg/dl (0.2-1.3) Direct Bilirubin 0.00 mg/dl (0.00-0.20) Indirect Bilirubin 0.2 mg/dl (0-1.1) Aspartate Amino Transf (AST/SGOT) 38 IU/L (15-46) Alanine Aminotransferase (ALT/SGPT) 48 IU/L (13-69) Alkaline Phosphatase 110 IU/L (42-121) Creatine Kinase 247 IU/L (23-200) Creatine Kinase Index 0.9 Creatinine Kinase MB (Mass) 2.15 ng/ml (0.0-2.4) Troponin I < 0.012 ng/ml (0.000-0.120) Total Protein 5.9 g/dl (6.1-8.1) Albumin 2.9 g/dl (3.3-4.9) Globulin 3.00 g/dl (1.3-3.2) Albumin/Globulin Ratio 0.96 SADE ROBISON NP Jan 15, 2019 16:32
== END 2019-01-15 20:06 | DRG 918 ==
LOC: E/R 04:56 → 5EC 13:47
PROVIDERS: ADMIT Internal Medicine; ATTEND Internal Medicine
DX: T42.6X2A Poisoning by other antiepileptic and sedative-hypnotic drugs, intentional self-harm, initial encounter (principal); M62.82 Rhabdomyolysis; E66.9 Obesity, unspecified; F15.159 Other stimulant abuse with stimulant-induced psychotic disorder, unspecified; F11.159 Opioid abuse with opioid-induced psychotic disorder, unspecified; Z68.33 Body mass index [BMI] 33.0-33.9, adult; B18.2 Chronic viral hepatitis C; F17.200 Nicotine dependence, unspecified, uncomplicated
CPT/HCPCS: 36415; 80053; 80061; 80307; 81001; 82550; 82553; 83036; 83605; 83735; 84100; 84484; 85025; 93005; 96361; 96374; J1650; J2060; J7030